=== PATIENT | male | born 1990 | race Caucasian/White ===

== ENCOUNTER 2017-01-16 03:44 | Emergency (ER) | payer SELFPAY ==
[~2017-01-16] VITALS: Ht 180.3 cm; Wt 131.8 kg
[2017-01-16] MEDS ORDERED: BACITRACIN 0.9 GM PACKET OINTMENT TP ONE (04:45)
[2017-01-16] MEDS ORDERED: IBUPROFEN 800 MG TABLET PO ONE (04:45)
[2017-01-16] MEDS ORDERED: PERTUSS(ACELL),DIPH,TET VAC/PF 0.5 ML VIAL IM ONE (04:45)
[2017-01-16 05:05] VITALS: BP 130/73
== END 2017-01-16 05:08 | disposition home or self-care (01) ==
LOC: EDBD 03:45 → EMS 03:45
DX: S60.221A Contusion of right hand, initial encounter (principal); Z87.891 Personal history of nicotine dependence; W22.01XA Walked into wall, initial encounter; Y93.89 Activity, other specified; Y92.89 Other specified places as the place of occurrence of the external cause; Y99.8 Other external cause status
CPT/HCPCS: 90471; 90715; 99284